=== PATIENT | female | born 1970 | race African-American/Black ===

== ENCOUNTER 2019-04-04 07:42 | Day surgery (SDC) | payer OTHER ==
[~2019-04-04] VITALS: Ht 165.1 cm; Wt 124.0 kg
[2019-04-04] VITALS (10 sets, daily range): BP systolic 97–131; BP diastolic 54–80; PULSE 58–94; TEMP 97.7–98.6
[2019-04-04] MEDS ORDERED: PRILOTC PO (08:10)
--- NOTE | 2019-04-04 14:15 | NUR ---
Patient to room 222 via bed from OR. Family at bedside. Patient asleep, but arouses quickly to name. Assessment completed and patient oriented to room and call light. Plan of care reviewed.
--- NOTE | 2019-04-04 16:30 | NUR ---
Patient calls out with the urge to void, assisted to bathroom. Patient unable to void after several minutes. Dr. Kate called and order received for carey catheter to be placed.
--- NOTE | 2019-04-04 17:28 | NUR ---
Percocet 5\325 mg. one given per request and as ordered.
[2019-04-04] MEDS ORDERED: MOTRIN 800800 MG/TAB PO (17:49)
[2019-04-04] MEDS ORDERED: PERCOCET 325 MG1 TA2 PO (17:50)
[2019-04-05] VITALS: BP 115/59; PULSE 95; TEMP 98.9
[2019-04-05 04:00] VITALS: BP 92/52; PULSE 76; TEMP 98.1
[2019-04-05 07:25] VITALS: BP 107/57; PULSE 75; TEMP 98.6
== END 2019-04-05 12:05 | disposition home or self-care (01) ==
LOC: SDCO 07:42 → OB 18:00 → SDCO 04-05 12:05
DX: D25.9 Leiomyoma of uterus, unspecified (principal); N92.1 Excessive and frequent menstruation with irregular cycle; D64.9 Anemia, unspecified; K21.9 Gastro-esophageal reflux disease without esophagitis; E11.9 Type 2 diabetes mellitus without complications
CPT/HCPCS: OP; A4314; J0690; J1100; J1885; J2405; J2704; J2710; J3010; J7120

== ENCOUNTER → 2020-04-01 | Outpatient (CLI) | payer OTHER ==
[~2020-04-01] MED LIST: MOTRIN 800800 MG/TAB PO; PERCOCET 325 MG1 TA2 PO; PRILOTC PO
== END ==
LOC: MC.RAD 15:47
DX: Z12.31 Encounter for screening mammogram for malignant neoplasm of breast (principal)

== ENCOUNTER → 2021-06-29 | Outpatient (CLI) | payer OTHER ==
[~2021-06-29] VITALS: Ht 165.1 cm; Wt 123.3 kg
[~2021-06-29] MED LIST changes: +TRAMADOL; +ULTRAM 50MG TAB50 MG PO; +ZANAFLEX CAPSULE4 MG PO
[2021-06-29 12:09] VITALS: BP 137/89; PULSE 100; TEMP 98.2
--- NOTE | 2021-06-29 12:15 | NUR ---
PT HAS ACHY PAIN WHEN SITTING AND SHARP PAIN WHEN WALKING. OCCASSIONALLY THE PAIN, SHARP WILL GO DOWN BOTH THIGHS. CURRENTLY JUST THE ACHY AND SHARP PAINS.
[2021-06-29 13:28] VITALS: BP 119/78; PULSE 85
== END ==
LOC: COL.RAD 11:52
DX: M47.816 Spondylosis without myelopathy or radiculopathy, lumbar region (principal); M51.26 Other intervertebral disc displacement, lumbar region
CPT/HCPCS: J3301